=== PATIENT | male | born 1970 | race African-American/Black ===

== ENCOUNTER 2018-07-02 20:48 | Emergency (ER) | payer OTHER ==
[2018-07-02 21:24] LABS: #Basophils 0.1 thou/uL (0.0-0.2); #Eosinphils 0.1 thou/uL (0.0-0.7); #Lymphocytes 2.2 thou/uL (1.20-3.40); #Monocytes 0.8 thou/uL (0.11-0.59); #Neutrophils 8.8 thou/uL (1.40-6.50); %Basophils 0.7 % (0.0-1.0); %Eosinophils 0.8 % (0.0-10.0); %Lymphocytes 18.3 % (21.0-51.0); %Monocytes 6.3 % (0.0-10.0); %Neutrophils 73.9 % (42.0-75.0); Hemoglobin 16.1 g/dL (14.0-18.0); Mean Corpuscular HGB CONC 33.2 g/dL (32.0-36.0); Mean Corpuscular Hemoglobin 30.8 pg (27.0-31.0); Mean Corpuscular Volume 92.7 fL (78.0-98.0); Mean Platelet Volume 7.6 fL (7.4-10.4); Platelet Count 236 thou/uL (130-400); RBC Distribution Width 12.8 % (11.5-14.5); Red Blood Cell (RBC) Count 5.24 mill/uL (4.70-6.10); White Blood Cell (WBC) Count 11.9 thou/uL (4.8-10.8)
[2018-07-02 21:45] LABS: ALT (SGPT) 16 U/L (8-55); AST (SGOT) 26 U/L (5-34); Albumin 4.9 g/dL (3.5-5.0); Alcohol 200 mg/dL (Less than 10); Alkaline Phosphatase 52 U/L (40-150); Anion Gap 23 mmol/L (10-20); BUN (Urea Nitrogen) 12 mg/dL (8.9-20.6); Bilirubin, Total 1.5 mg/dL (0.2-1.2); Calc. Creatinine Clearance 0 mL/min (70-130); Calcium 9.8 mg/dL (7.8-10.44); Carbon Dioxide 14 mmol/L (22-29); Chloride 101 mmol/L (98-107); Estimated GFR-MDRD 89; Globulin 3.1 g/dL (2.4-3.5); Glucose 107 mg/dL (70-105); Lipase 49 U/L (8-78); Potassium 3.3 mmol/L (3.5-5.1); Sodium 135 mmol/L (136-145)
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
[2018-07-02] MEDS ORDERED: Morphine 4 MG/ML VIAL ONE (22:28)
== END 2018-07-03 00:52 ==
LOC: ERS 20:48
DX: S16.1XXA Strain of muscle, fascia and tendon at neck level, initial encounter (principal); S29.012A Strain of muscle and tendon of back wall of thorax, initial encounter; S39.012A Strain of muscle, fascia and tendon of lower back, initial encounter; Z87.891 Personal history of nicotine dependence; V43.52XA Car driver injured in collision with other type car in traffic accident, initial encounter
CPT/HCPCS: 70450; 71045; 72125; 72128; 72131; 72170; 80053; 80307; 83690; 85025; 86850; 86900; 86901; 93005; 96361; 96374; G0390; J2270

== ENCOUNTER 2021-04-16 18:37 | Inpatient (IN) | payer OTHER, BC ==
[2021-04-16] MEDS ORDERED: HYDROmorphone 0.5 MG/0.5 ML SYRINGE ONE (18:47)
[2021-04-16] MEDS ORDERED: Ondansetron PF 4 MG/2 ML Vial ONE (18:54)
[2021-04-16 19:42] LABS: #Basophils 0.1 thou/uL (0.0-0.2); #Lymphocytes 1.2 thou/uL (1.20-3.40); #Monocytes 1.1 thou/uL (0.11-0.59); #Neutrophils 10.8 thou/uL (1.40-6.50); %Basophils 0.5 % (0.0-1.0); %Eosinophils 0.3 % (0.0-10.0); %Lymphocytes 8.9 % (21.0-51.0); %Monocytes 8.6 % (0.0-10.0); %Neutrophils 81.7 % (42.0-75.0); Hemoglobin 14.3 g/dL (14.0-18.0); Mean Corpuscular HGB CONC 32.8 g/dL (32.0-36.0); Mean Corpuscular Hemoglobin 31.1 pg (27.0-31.0); Mean Corpuscular Volume 94.6 fL (78.0-98.0); Mean Platelet Volume 7.7 fL (7.4-10.4); Platelet Count 170 thou/uL (130-400); RBC Distribution Width 12.3 % (11.5-14.5); Red Blood Cell (RBC) Count 4.59 mill/uL (4.70-6.10); White Blood Cell (WBC) Count 13.2 thou/uL (4.8-10.8)
[2021-04-16] MEDS ORDERED: hydrALAZINE 20 MG/ML VIAL SLOW IVP PRN (19:52)
[2021-04-16] MEDS ORDERED: Dextrose 5% in Water 1,000 ML IV PRN (19:52)
[2021-04-16] MEDS ORDERED: Dextrose 50% Abboject 50 ML SYRINGE SLOW IVP PRN (19:52)
[2021-04-16] MEDS ORDERED: Ondansetron PF 4 MG/2 ML Vial IVP PRN (19:52)
[2021-04-16] MEDS ORDERED: traMADol HCl 50 MG TAB PO PRN (19:54)
[2021-04-16] MEDS ORDERED: Cyclobenzaprine 10 MG TAB PO PRN (19:54)
[2021-04-16 20:06] LABS: Anion Gap 14 mmol/L (10-20); BUN (Urea Nitrogen) 11 mg/dL (8.9-20.6); Calc. Creatinine Clearance 0 mL/min (70-130); Calcium 8.4 mg/dL (7.8-10.44); Carbon Dioxide 20 mmol/L (22-29); Chloride 108 mmol/L (98-107); Glucose 108 mg/dL (70-105); Magnesium 1.5 mg/dL (1.6-2.6); Potassium 4.2 mmol/L (3.5-5.1); Sodium 138 mmol/L (136-145)
[2021-04-16] MEDS ORDERED: Ketorolac Tromethamine 30 MG/ML VIAL ONE (20:12)
[2021-04-16 20:38] LABS: INR-International Normal Ratio 0.9; Prothrombin Time 12.5 sec (12.0-14.7)
[2021-04-16] MEDS ORDERED: Famotidine 20 MG TAB PO SCH ×2 (21:00→22:30)
[2021-04-16 21:06] LABS: SARS-CoV-2 NAA Rapid Test Not Detected (NotDetected)
[2021-04-16 21:24] VITALS: BMI 24.3
[2021-04-16] MEDS ORDERED: Magnesium 2 GM/50 ML 2 GM in Premix Bag 1 BAG IVPB SCH (22:00)
[2021-04-16] MEDS: Sodium Chloride 0.9% 1,000 ML IV SCH (22:12)
[2021-04-16] MEDS: Acetaminophen 500 MG TAB PO SCH (22:12)
[2021-04-16] MEDS: Ibuprofen 200 MG TAB PO SCH (22:14)
[2021-04-16] MEDS: Senokot S 8.6-50 MG TAB PO SCH (22:15)
[2021-04-16] MEDS: Oxazepam 10 MG CAP PO SCH (22:16)
[2021-04-16] MEDS: Gabapentin 300 MG CAP PO SCH (22:16)
[2021-04-16] MEDS ORDERED: Sodium Phosphate 30 MMOL in Sodium Chloride 0.9% 250 ML 250 ML IVPB SCH (23:00)
[2021-04-17] MEDS: traMADol HCl 50 MG TAB PO PRN ×2 (00:08→15:24)
[2021-04-17] MEDS: Morphine 4 MG/ML VIAL SLOW IVP PRN ×2 (01:48→15:55)
[2021-04-17] MEDS: Sodium Chloride 0.9% 1,000 ML IV SCH ×2 (04:10→16:51)
[2021-04-17] MEDS: Acetaminophen 500 MG TAB PO SCH ×4 (04:11→19:38)
[2021-04-17 05:31] LABS: Hemoglobin 13.8 g/dL (14.0-18.0); Mean Corpuscular HGB CONC 32.6 g/dL (32.0-36.0); Mean Corpuscular Hemoglobin 30.7 pg (27.0-31.0); Mean Corpuscular Volume 94.3 fL (78.0-98.0); Mean Platelet Volume 7.4 fL (7.4-10.4); Platelet Count 182 thou/uL (130-400); RBC Distribution Width 12.4 % (11.5-14.5); White Blood Cell (WBC) Count 6.9 thou/uL (4.8-10.8)
[2021-04-17 05:53] LABS: Lymphocytes 28 % (21-51); MDiff Complete? YES; Monocytes 15 % (0-10); Neutrophil 57 % (42-75)
[2021-04-17 06:03] LABS: Anion Gap 11 mmol/L (10-20); BUN (Urea Nitrogen) 7 mg/dL (8.9-20.6); Calc. Creatinine Clearance 92 mL/min (70-130); Calcium 8.3 mg/dL (7.8-10.44); Carbon Dioxide 24 mmol/L (22-29); Chloride 103 mmol/L (98-107); Glucose 111 mg/dL (70-105); Magnesium 2.3 mg/dL (1.6-2.6); Phosphorus 4.6 mg/dL (2.3-4.7); Potassium 3.7 mmol/L (3.5-5.1); Sodium 134 mmol/L (136-145)
[2021-04-17] MEDS: Ibuprofen 200 MG TAB PO SCH ×3 (06:18→21:13)
[2021-04-17] MEDS: Oxazepam 10 MG CAP PO SCH ×3 (06:20→22:09)
[2021-04-17] MEDS ORDERED: ceFAZolin Sodium/D5W 2 GM in Premix Bag 1 BAG IVPB SCH (07:45)
[2021-04-17] MEDS ORDERED: Famotidine/PF 20 mg/2ml Vial IVPB SCH (09:00)
[2021-04-17] MEDS ORDERED: FLU VACC QS2021-22(6MOS UP)/PF 60 MCG/0.5 ML SYRINGE IM ONE (09:00)
[2021-04-17] MEDS ORDERED: Thiamine 100 MG TAB PO SCH (09:00)
[2021-04-17] MEDS ORDERED: Multivitamin W/ Minerals 1 TAB PO SCH (09:00)
[2021-04-17] MEDS ORDERED: Famotidine/PF 20 mg/2ml Vial SLOW IVP SCH (09:00)
[2021-04-17] MEDS ORDERED: ceFAZolin 2 GM/DEX 5% 100 ML BAG ONE (10:43)
[2021-04-17] MEDS ORDERED: Midazolam HCl 2 mg/2 ml Vial ONE (12:18)
[2021-04-17] MEDS ORDERED: Fentanyl 100 MCG/2 ML VIAL ONE ×3 (12:18→14:18)
[2021-04-17] MEDS ORDERED: Ketorolac Tromethamine 30 MG/ML VIAL ONE (12:22)
[2021-04-17] MEDS ORDERED: Dexamethasone 20 MG/5 ML VIAL ONE (12:22)
[2021-04-17] MEDS ORDERED: PROPOFOL 200 MG/20 ML VIAL ONE (12:22)
[2021-04-17] MEDS ORDERED: Lidocaine 1% PF 5 ML VIAL ONE (12:22)
[2021-04-17] MEDS ORDERED: Ondansetron PF 4 MG/2 ML Vial ONE (12:22)
[2021-04-17] MEDS ORDERED: HYDROmorphone 2 MG/ML VIAL SLOW IVP PRN (13:33)
[2021-04-17] MEDS ORDERED: Meperidine HCl/PF 25 MG/ML VIAL SLOW IVP PRN (13:33)
[2021-04-17] MEDS ORDERED: Promethazine HCl 25 MG/ML VIAL IVPB PRN (13:33)
[2021-04-17] MEDS ORDERED: Ondansetron HCl/PF 4 MG/2 ML Vial IVP PRN (13:33)
[2021-04-17] MEDS ORDERED: Promethazine HCl 25 MG/ML VIAL IM PRN (13:33)
[2021-04-17] MEDS: Gabapentin 300 MG CAP PO SCH ×3 (13:48→21:11)
[2021-04-17] MEDS: Polyethylene Glycol 3350 17 GM Packet PO SCH (13:48)
[2021-04-17] MEDS: Famotidine 20 MG TAB PO SCH ×2 (13:48→21:13)
[2021-04-17] MEDS: Folic Acid 1 MG TAB PO SCH (13:48)
[2021-04-17] MEDS: Senokot S 8.6-50 MG TAB PO SCH ×2 (13:49→21:14)
[2021-04-17] MEDS: ceFAZolin Sodium/D5W 2 GM in Premix Bag 1 BAG IVPB SCH (19:30)
[2021-04-18] MEDS: Acetaminophen 500 MG TAB PO SCH ×2 (03:18→09:03)
[2021-04-18] MEDS: ceFAZolin Sodium/D5W 2 GM in Premix Bag 1 BAG IVPB SCH (03:20)
[2021-04-18] MEDS: traMADol HCl 50 MG TAB PO PRN ×2 (03:24→09:11)
[2021-04-18] MEDS: Ibuprofen 200 MG TAB PO SCH (05:11)
[2021-04-18] MEDS: Oxazepam 10 MG CAP PO SCH (05:21)
[2021-04-18 05:28] LABS: #Lymphocytes 0.6 thou/uL (1.20-3.40); #Monocytes 0.7 thou/uL (0.11-0.59); #Neutrophils 5.9 thou/uL (1.40-6.50); %Basophils 0.2 % (0.0-1.0); %Eosinophils 0.1 % (0.0-10.0); %Lymphocytes 7.7 % (21.0-51.0); %Monocytes 9.4 % (0.0-10.0); %Neutrophils 82.6 % (42.0-75.0); Hemoglobin 12.6 g/dL (14.0-18.0); Mean Corpuscular HGB CONC 32.6 g/dL (32.0-36.0); Mean Corpuscular Hemoglobin 31.2 pg (27.0-31.0); Mean Corpuscular Volume 95.7 fL (78.0-98.0); Mean Platelet Volume 7.7 fL (7.4-10.4); Platelet Count 179 thou/uL (130-400); RBC Distribution Width 12.5 % (11.5-14.5); Red Blood Cell (RBC) Count 4.04 mill/uL (4.70-6.10); White Blood Cell (WBC) Count 7.1 thou/uL (4.8-10.8)
[2021-04-18 06:04] LABS: Anion Gap 15 mmol/L (10-20); BUN (Urea Nitrogen) 9 mg/dL (8.9-20.6); Calc. Creatinine Clearance 84 mL/min (70-130); Calcium 8.7 mg/dL (7.8-10.44); Carbon Dioxide 21 mmol/L (22-29); Chloride 107 mmol/L (98-107); Glucose 174 mg/dL (70-105); Magnesium 2.2 mg/dL (1.6-2.6); Phosphorus 2.5 mg/dL (2.3-4.7); Potassium 4.7 mmol/L (3.5-5.1); Sodium 138 mmol/L (136-145)
[2021-04-18] MEDS: Polyethylene Glycol 3350 17 GM Packet PO SCH (09:02)
[2021-04-18] MEDS: Senokot S 8.6-50 MG TAB PO SCH (09:03)
[2021-04-18] MEDS: Famotidine 20 MG TAB PO SCH (09:03)
[2021-04-18] MEDS: Folic Acid 1 MG TAB PO SCH (09:03)
[2021-04-18] MEDS: Gabapentin 300 MG CAP PO SCH (09:03)
[2021-04-18 11:28] VITALS: BP 156/86; TEMP 98.3
== END 2021-04-18 12:46 | disposition home or self-care (01) | DRG 494 ==
LOC: ERS 18:37 → SURG B 19:55
PROVIDERS: ADMIT Specialist; ATTEND Specialist
PROC: 0QSG04Z Reposition Right Tibia with Internal Fixation Device, Open Approach (ICD-10-PCS; principal; 2021-04-17)
DX: S82.301A Unspecified fracture of lower end of right tibia, initial encounter for closed fracture (principal); S82.831A Other fracture of upper and lower end of right fibula, initial encounter for closed fracture; E83.39 Other disorders of phosphorus metabolism; E83.42 Hypomagnesemia; Z20.822 Contact with and (suspected) exposure to COVID-19; Z87.891 Personal history of nicotine dependence; V80.010A Animal-rider injured by fall from or being thrown from horse in noncollision accident, initial encounter; Y92.89 Other specified places as the place of occurrence of the external cause
CPT/HCPCS: 36415; 71045; 76000; 80048; 80307; 83735; 84100; 85025; 85610; 85730; 93005; C1713; C1769; G0390; J0360; J1100; J1170; J1885; J2250; J2270; J2405; J2704; J3010; J3475; J7050; U0002

== ENCOUNTER 2021-10-21 10:42 | Outpatient (CLI) | payer BC | END 2021-10-21 10:43 | disposition home or self-care (01) | LOC: LABBT 10:42 | PROVIDERS: ATTEND Orthopaedic Surgery | DX: S82.871A Displaced pilon fracture of right tibia, initial encounter for closed fracture (principal); Z20.822 Contact with and (suspected) exposure to COVID-19 | CPT/HCPCS: U0003; U0005 ==

== ENCOUNTER 2021-10-26 11:09 | Day surgery (SDC) | payer BC ==
[2021-10-22 12:04] VITALS: BMI 23.6
[2021-10-26] MEDS ORDERED: fentaNYL Citrate/PF 100 MCG/2 ML SYRINGE ONE (13:59)
[2021-10-26] MEDS ORDERED: Sodium Chloride 0.9% 100 ML ONE (14:05)
[2021-10-26] MEDS ORDERED: CEFAZOLIN 2 GM VIAL ONE (14:05)
[2021-10-26] MEDS ORDERED: Dexamethasone 20 MG/5 ML VIAL ONE (14:25)
[2021-10-26] MEDS ORDERED: Ondansetron PF 4 MG/2 ML Vial ONE (14:25)
[2021-10-26] MEDS ORDERED: PROPOFOL 200 MG/20 ML VIAL ONE (14:25)
[2021-10-26] MEDS ORDERED: Lidocaine 1% PF 5 ML VIAL ONE (14:25)
[2021-10-26] MEDS ORDERED: Morphine 10 MG/ML VIAL ONE (15:39)
[2021-10-26] MEDS ORDERED: Meperidine HCl/PF 25 MG/ML VIAL ONE (16:06)
[2021-10-26] MEDS ORDERED: Ketorolac Tromethamine 30 MG/ML VIAL ONE (16:06)
[2021-10-26] MEDS ORDERED: HYDROmorphone 2 MG/ML VIAL ONE (16:11)
[2021-10-26] MEDS ORDERED: Labetalol HCl 100 MG/20 ML VIAL ONE (16:18)
[2021-10-26] MEDS ORDERED: Fentanyl 100 MCG/2 ML VIAL ONE ×2 (16:44→16:56)
[2021-10-26] MEDS ORDERED: HYDROcodone/Acetaminophen 5/325 mg Tablet ONE (17:32)
[2021-10-26] MEDS ORDERED: Ondansetron ODT 4 MG TAB ONE (18:02)
== END 2021-10-26 18:12 | disposition home or self-care (01) ==
LOC: SDC 11:09
PROVIDERS: ATTEND Orthopaedic Surgery
PROC: 0QHG04Z Insertion of Internal Fixation Device into Right Tibia, Open Approach (ICD-10-PCS; principal; 2021-10-26)
DX: S82.871K Displaced pilon fracture of right tibia, subsequent encounter for closed fracture with nonunion (principal); Y93.52 Activity, horseback riding
CPT/HCPCS: 76000; C1713; C1769; J0690; J1100; J1170; J1885; J2175; J2270; J2405; J2704; J3010; J3490; Q0162